=== PATIENT | female | born 2005 | race Caucasian/White ===

== ENCOUNTER → 2023-10-22 | Outpatient (CLI) | payer OTHER, SELFPAY ==
--- NOTE | 2023-10-22 17:15 | RAD_ITS ---
EXAM: XR LUMBOSACRAL SPINE, 4 OR 5 VIEWS CLINICAL INDICATION: Wedge compression fracture of T11-T12 vertebra, sequela TECHNIQUE: Frontal, lateral and bilateral oblique views of the lumbar spine. COMPARISON: Thoracic spine radiographs on the same date. FINDINGS: VERTEBRAE: Multilevel facet arthrosis and endplate osteophytosis. Possible mild T12 compression deformity partially visualized. [place] right curvature of the lumbar spine. No spondylolisthesis. SACRUM/COCCYX: Symmetric appearance of the bilateral SI joints. DISC SPACES: Mild multilevel intervertebral disc height loss. GASTROINTESTINAL TRACT: Normal as visualized. Included bowel gas pattern is non-obstructive. RAD/L/S Spine Min 4 Views IMPRESSION: Possible mild T12 compression deformity partially visualized. Degenerative changes in the lumbar spine. No additional acute osseous abnormality. Electronically Signed: Carlos Corona DO at 20:57 EDT ,
--- NOTE | 2023-10-22 17:15 | RAD_ITS ---
EXAM: XR THORACIC SPINE, 3 VIEWS CLINICAL INDICATION: Wedge compression fracture of T11-T12 vertebra, sequela TECHNIQUE: Frontal, lateral and swimmer''s views of the thoracic spine. COMPARISON: No relevant prior studies available. FINDINGS: VERTEBRAE: Mild superior endplate depression of T12. Preserved vertebral body height. No fracture. No spondylolisthesis. Preservation of the normal thoracic kyphosis. No significant facet arthropathy. DISC SPACES: Unremarkable. Disc spaces are maintained. RAD/Thoracic Spine 3 Views IMPRESSION: Mild superior endplate depression of T12 of uncertain age. No other abnormalities are identified. Electronically Signed: Francisco Marinelli MD at 22:18 EDT ,
== END | disposition home or self-care (01) ==
PROVIDERS: PCP Pediatrics; Referring Provider Anesthesiology; Visit Provider Anesthesiology
DX: S22.080S Wedge compression fracture of T11-T12 vertebra, sequela (principal)
CPT/HCPCS: 72072; 72110

== ENCOUNTER 2023-11-16 17:30 | Outpatient (RCR) | payer OTHER, SELFPAY | END 2023-11-16 19:00 | disposition home or self-care (01) | LOC: PT 17:30 | PROVIDERS: PCP Pediatrics; Referring Provider Anesthesiology; Visit Provider Anesthesiology | DX: M54.6 Pain in thoracic spine (principal); S22.080D Wedge compression fracture of T11-T12 vertebra, subsequent encounter for fracture with routine healing; M79.10 Myalgia, unspecified site | CPT/HCPCS: 97014; 97110; 97161; G0283 ==

== ENCOUNTER 2024-07-20 19:33 | Inpatient (IN) | payer OTHER, SELFPAY ==
[2024-07-20 19:47] VITALS: BMI 29.9
[2024-07-20 20:00] VITALS: BP 110/60; PULSE 82; RESP 16; TEMP 36.6
--- NOTE | 2024-07-20 20:30 | HP.PCM.OB_ITS ---
HPI - General General Date of Admission: 07/20/24 HPI Narrative LYLE MORFIN, is a 19 F at 39.1 weeks gestation who presents for elective induction of labor. Maternal Data Information DWAYNE Calculator Estimated Delivery Date Method Current WG Current Estimate 07/26/24 Manual 39w 1d PFSH [facility] Medical History (Updated 07/20/24 @ 20:32 by Gela Johnson CNM) Asthma Depression Anxiety Fracture of T12 vertebra History of traumatic brain injury History of seizure Home Medications ?Medication ?Instructions ?Recorded ?Last Taken ?Type aspirin 81 mg tablet,delayed 81 mg PO DAILY 07/20/24 07/19/24 20:00 History release 81 mg docosahexaenoic acid 200 mg 200 mg PO DAILY 07/20/24 07/19/24 20:00 History capsule ( DHA) 200 mg ferrous sulfate 325 mg (65 mg 325 mg PO QODAY anemia 0 07/20/24 07/18/24 20:11 History iron) tablet (FeroSul) 325 mg Allergy/AdvReac Type Severity Reaction Status Date / Time No Known Allergies Allergy Verified 07/20/24 20:10 Family History (Updated 10/20/23 @ 15:26 by Shelley Forte) Mother Skin cancer Grandmother Leukemia Grandmother Diabetes Grandmother Breast cancer CVA (cerebral vascular accident) Social History (Updated 10/20/23 @ 15:23 by Shelley Forte) Smoking Status: Never smoker alcohol intake: never History Elective abortions Hx Para 0 Spontaneous abortions Hx # Term Pregnancies Ectopic pregnancies Hx # Pregnancies Multiple births # of living children NST FHR Rate Baby A Baseline: 140 Variability:: Moderate Accelerations:: 15 x 15 Decelerations:: None NST Reactive:: Yes ROS Eyes Eyes: Denies blurry vision, change in vision or spots in vision ENT HEENT: Denies dizziness or headache(s) Cardiovascular Cardiovascular: Denies abdominal pain, chest pain or dyspnea Respiratory/Chest Respiratory/Chest: Denies cough, dyspnea, shortness of breath at rest or shortness of breath with exertion Gastrointestinal Gastrointestinal: Denies abdominal pain, diarrhea or vomiting Genitourinary Genitourinary: Denies change in urinary stream, difficulty urinating or dysuria Musculoskeletal Musculoskeletal: Reports none Integumentary Integumentary: Denies rash Neurologic Neurologic: Denies dizziness, headache(s), memory loss or weakness Psychiatric Psychiatric: Reports none Vital Signs Vital Signs Vital Signs: 07/20/24 20:00 07/20/24 20:00 07/20/24 20:00 Temperature Temperature Source Temporal Pulse Rate 82 Respiratory Rate Blood Pressure 110/60 BP Systolic 110 BP Diastolic 60 07/20/24 20:00 07/20/24 20:00 Temperature 97.8 F Temperature Source Pulse Rate Respiratory Rate 16 Blood Pressure BP Systolic BP Diastolic Weight Weight: 168 lb 13.985 oz Body Mass Index (BMI) 29.9 Physical Exam Const alert, oriented x3 and no apparent distress General Appearance: cooperative Orientation / Consciousness: awake Exam Limitations: no limitations HEENT normocephalic Head and Scalp: normal to inspection Eyes General Eye: normal appearance of both eyes Neck full ROM and no lymphadenopathy Lymph Lymphatic: no lymphadenopathy noted Chest inspection of chest normal Resp normal respiratory effort, normal air movement and clear to auscultation bilaterally Effort and Inspection: able to speak in complete sentences and symmetric chest movement Cardio regular rate and regular rhythm GI normal to inspection, nondistended, normoactive bowel sounds Manual OB Exam: presentation cephalic Back/Spine normal ROM Extremity full ROM and no calf tenderness Skin no rashes or lesions noted General Skin Exam: no breakdown Neuro oriented x3 and CN's II-XII intact bilaterally Psych mental status grossly normal and thought process normal Labs Labs Labs: No Data to Display Assessment & Plan (1) 39 weeks gestation of : (2) Encounter for elective induction of labor: (3) Rubella non-immune status, antepartum: (4) Anemia affecting : PLAN: Plan CE closed Start Cytotec 25 mcg PO every 4 hours x 6 total doses GBS negative Routine labs Pain control as needed Anticipate placement of viera bulb in morning Dr. Guadalupe notified of admission and is collaborating physician
[2024-07-20] MEDS: 0.9% Saline Lock 10 ML Syringe IV (20:41)
[2024-07-20] MEDS: miSOPROStol 25 MCG TABLET PO (20:41)
[2024-07-20 20:48] LABS: Absolute Lymphocyte Count 1.85 X10^3/uL (0.83-4.51); Absolute Neutrophil Count 8.4 X10^3/uL (2.0-7.7); Basophil# 0.02 X10^3/uL; Basophil% 0.2 % (0-1); Eosinophil# 0.07 X10^3/uL; Eosinophils% 0.6 % (0-5); Hematocrit 32.5 % (37-47); Lymphocyte # 1.85 X10^3/ul (0.83-4.51); Lymphocyte % 16.4 % (19-41); Mean Corp Hgb Conc 33.8 g/dL (32-36); Mean Corpuscular Hgb 29.9 pg (27.0-32.0); Mean Corpuscular Volume 88.3 fL (81-99); Mean Platelet Vol. 10.2 fl (6.2-12.0); Monocyte# 0.76 X10^3/uL; Monocyte% 6.7 % (0-10); NRBC Flagged by Analyzer 0 % (0-5); Neutrophil % 74.3 % (47-70); Platelet Count 278 K/mm3 (150-450); RBC Distribution Width CV 13.2 % (11.6-14.6); RBC Distribution Width SD 42.6 fl (35.1-43.9); Red Blood Count 3.68 M/mm3 (4.2-5.4); White Blood Count 11.3 K/mm3 (4.4-11.0)
[2024-07-20] MEDS: Lactated Ringers 1,000 ML 50 ML IV (21:03)
[2024-07-20 21:26] VITALS: PULSE 69; O2SAT 98
[2024-07-20 21:27] LABS: Syphilis Antibodies Nonreactive (Nonreactive)
[2024-07-21] VITALS (53 sets, daily range): BP systolic 86–120; BP diastolic 49–81; PULSE 71–198; RESP 14–16; TEMP 36.2–37.2; O2SAT 96–100
[2024-07-21] MEDS: miSOPROStol 25 MCG TABLET PO ×2 (00:57→05:27)
[2024-07-21] MEDS: 0.9% Normal Saline Single 100 ML IV.SOLN. INTRA-UTER (06:33)
--- NOTE | 2024-07-21 06:33 | PCM.PN.CNM ---
Subjective Subjective Patient seen at bedside. Sleeping sound. Starting to feel mild contractions. Objective Data Objective Data Vital Signs: Vital Signs Temp Pulse Resp BP Pulse Ox 97.4 F L 83 16 106/53 L 98 07/21/24 04:09 07/21/24 04:10 07/21/24 04:09 07/21/24 04:09 07/21/24 04:10 Weight: 168 lb 13.985 oz Body Mass Index (BMI) 29.9 Lab / Micro Data 07/20/24 20:08 Labs: Laboratory Results - last 24 hr 07/20/24 20:08: WBC 11.3 H, RBC 3.68 L, Hgb 11.0 L, Hct 32.5 L, MCV 88.3, MCH 29.9, MCHC 33.8, RDW Std Deviation 42.6, RDW Coeff of Leoncio 13.2, Plt Count 278, MPV 10.2, Immature Gran % (Auto) 1.800 H, Neut % (Auto) 74.3 H, Lymph % (Auto) 16.4 L, [place] % (Auto) 6.7, Eos % (Auto) 0.6, Baso % (Auto) 0.2, Absolute Neuts (auto) 8.4 H, Absolute Lymphs (auto) 1.85, Nucleated RBC % 0, Syphilis Total Ab Nonreactive, Blood Type O POSITIVE, Antibody Screen NEGATIVE Assessment & Plan (1) Anemia affecting : (2) Rubella non-immune status, antepartum: (3) Encounter for elective induction of labor: (4) 39 weeks gestation of : PLAN: Plan CE /-3 Walton bulb placed without difficulty and filled with 30 cc N/S Cytotec 25 mcg PO x 3 doses- last dose 5:30 am Cat. 1 tracing Pain medication as needed
[2024-07-21] MEDS: Lactated Ringers 1,000 ML 999 ML IV (11:15)
[2024-07-21] MEDS: fentaNYL-bupivacaine (epidural) 100 ML BAG EPIDURAL (12:26)
[2024-07-21] MEDS: Lactated Ringers 1,000 ML 200 ML IV (15:40)
[2024-07-21] MEDS: LACTATED RINGERS 500 ML 999 ML IV (15:40)
[2024-07-21] MEDS: Oxytocin 15 Units/NS 250ml 15 UNITS/250 ML IV.SOLN 334 UNITS IV (17:14)
[2024-07-21] MEDS: Oxytocin 15 Units/NS 250ml 15 UNITS/250 ML IV.SOLN 83 UNITS IV (18:20)
[2024-07-21] MEDS: Cefazolin 2 GM in 0.9% Normal Saline (100mL Bag) 100 ML IV (18:37)
[2024-07-21] MEDS: 0.9% Saline Lock 10 ML Syringe IV (20:04)
[2024-07-21] MEDS: Ondansetron 4 MG/2 ML Vial IV (20:04)
--- NOTE | 2024-07-21 20:13 | EX.PCM.OBVAG ---
Assessment & Plan (1) Vacuum extractor delivery, delivered: (2) Single live : (3) Fourth degree perineal laceration: Maternal Data Information DWAYNE Calculator Estimated Delivery Date Method Current WG Current Estimate 07/26/24 Manual 39w 2d Final DWAYNE: 07/26/24 Gestational age: 39 2/7 Vaginal Delivery Maternal Presentation Maternal Presentation: Elective Induction Type of Induction: Cervidil, Walton Bulb and Amniotomy Vaginal Delivery Information Procedure Performed: Vacuum Assisted Vaginal Delivery (outlet) Station at time of placement: +3 Number of vacuum pulls: 2 Number of vacuum pop offs: 0 Surgeon/Practitioner: Cyndee Méndez Date of Procedure: 07/21/24 Pre-Procedure Diagnosis: bradycardia with late decelerations Post-Procedure Diagnosis: same Type of anesthesia: Epidural Special Medications: ancef 2 grams IV Estimated Blood Loss: 800 Time of Delivery: 17:10 Findings Description of procedure: I evaluated the patient and the position was WU and she was labia by 3 cm with maternal pushing. There is minimal caput. She had an epidural in place and it was adequate and a Walton catheter in place. Estimated weight was less than 4000 g clinically and pelvis clinically adequate to expect vaginal delivery. She had bradycardia with moderate variability but some late decelerations and at times minimal variability. The decelerations were coming more prolonged and longer did return to baseline. She had pushed with good progression. I discussed with the patient that I recommend expediting delivery with vacuum assistance. Patient and her agreed. Vacuum was placed on the flexion point after the team was assembled. Suction was created 550 mmHg. I pulled with 2 contractions and no pop offs to . The vacuum was removed and the head was delivered with maternal pushing efforts. A vigorous female infant was delivered WU over a 4 degree perineal laceration. A loose nuchal cord ?1 was easily reduced. The remainder the infant was delivered with maternal pushing and gentle traction only in less than 15 seconds. The Pitocin infusion was initiated for active management of the third stage. The cord was clamped and cut after 1 minute. The infant was attended to by the waiting nursing staff. The placenta was delivered spontaneously and intact. The cervix and vagina were intact. I repaired the laceration and after repairing the sphincter I did a rectal exam and no defects were appreciated. However after I finish the entire repair I did another rectal exam and appreciated approximately a 8 mm defect in the rectal mucosa. I discussed with the patient and her this finding and recommended repair in the operating room. She was taken the operating room for better visualization and so I could have assistance with retraction. The repair was taken down and the rectal mucosa was repaired with 3-0 Monocryl in a running standard fashion. The fascia of the anal sphincter was grasped with Allis clamps and reapproximated with 0 Vicryl suture. This was done in an overlapping fashion. Excellent reapproximation was noted. Then used a 2-0 Vicryl suture to reapproximate the vaginal epithelium in the perineal body in a running standard fashion. Some 3-0 Vicryl suture was used to reapproximate the perineal skin. A rectal exam was done at the end of the procedure and excellent repair was noted and there were no defects. Dr. Guadalupe assisted me with the second repair. She provided traction and suturing and assistance with visualization. Sponge and needle counts were correct. A vaginal sweep was completed by me. 1 moist sponge was then placed in the vagina for packing as there was some oozing through the sutures. Brandan was placed under the packing. Presentation: WU Amniotic Membrane Rupture Type: Artificial Amniotic Fluid Description: Moderate meconium Placental Delivery Description: Spontaneous Placenta Disposition: [facility] Specimen collected: No Cord Vessel Description: 3 Vessels Cord Entanglement: Around neck x 1, loose Nuchal Cord Compression: Without compression Cord Gases: ABG and VBG Infant A Gender: Female (1 minute): 8 (5 minute): 9 Delayed Cord Clamping: Yes Calendering Supervisor medical data analyst: Yes Pipe Line Walker: Meaghan Paz Tasks completed by surgical assistant certified: Hemostasis: Clamp, Hemostasis: Tie and Retracting Additional assistant professor of anthropology?: No Post Vaginal Deli Medications given after delivery: IV Pitocin Episiotomy Description: None Laceration: 4th Degree Complication Complications: No
[2024-07-21] MEDS: Ibuprofen 600 MG Tablet PO (22:30)
[2024-07-21] MEDS: Docusate Sodium 100 MG Capsule PO (22:31)
[2024-07-21] MEDS: Benzocaine/Lanolin/Aloe Vera 85 GM Spray 1 SPRAY TOPICAL (22:31)
[2024-07-21] MEDS: Acetaminophen 500 MG Tablet 1000 MG PO (23:29)
[2024-07-22] VITALS (8 sets, daily range): BP systolic 100–115; BP diastolic 57–62; PULSE 89–106; RESP 16; TEMP 36–37.1; O2SAT 96–99
[2024-07-22] MEDS: Ibuprofen 600 MG Tablet PO ×3 (06:02→17:55)
[2024-07-22 06:27] LABS: Absolute Neutrophil Count 11.4 X10^3/uL (2.0-7.7); Basophil# 0.03 X10^3/uL; Basophil% 0.2 % (0-1); Eosinophil# 0.03 X10^3/uL; Eosinophils% 0.2 % (0-5); Hematocrit 27.1 % (37-47); Hemoglobin 9.1 g/dL (12.0-15.0); Lymphocyte % 10.8 % (19-41); Mean Corp Hgb Conc 33.6 g/dL (32-36); Mean Corpuscular Hgb 29.8 pg (27.0-32.0); Mean Corpuscular Volume 88.9 fL (81-99); Mean Platelet Vol. 10.2 fl (6.2-12.0); Monocyte# 0.87 X10^3/uL; Monocyte% 6.3 % (0-10); NRBC Flagged by Analyzer 0 % (0-5); Neutrophil # 11.38 X10^3/uL (2.7-7.7); Neutrophil % 81.7 % (47-70); Platelet Count 223 K/mm3 (150-450); RBC Distribution Width CV 13.3 % (11.6-14.6); RBC Distribution Width SD 43.3 fl (35.1-43.9); Red Blood Count 3.05 M/mm3 (4.2-5.4); White Blood Count 13.9 K/mm3 (4.4-11.0)
[2024-07-22] MEDS: Acetaminophen 500 MG Tablet 1000 MG PO ×3 (08:47→20:44)
[2024-07-22] MEDS: oxyCODONE 5 MG Tablet PO ×3 (08:48→20:42)
--- NOTE | 2024-07-22 09:33 | PCM.PN.BLA ---
Progress Note Pain in her perineum. Took oxy. Average lochia. Tired. Physical Exam Narrative one intact laparatomy tape removed. Some moderate edema of labia and perineum. No hematomas noted. Viera in place Const alert and no apparent distress Narrative: Fundus firm, below umbilicus. Assessment & Plan Assessment/Plan (1) Fourth degree perineal laceration: PLAN: vag pack out ok to remove viera d/w her wound care f/u in office next week and will refer to perineal wound clinic as well work on recheck cbc in am likely d/c home tomorrow (2) Vacuum extractor delivery, delivered:
--- NOTE | 2024-07-22 09:40 | NURSING ---
Lap sponge removed from vagina per Dr. Méndez.
[2024-07-22] MEDS: Docusate Sodium 100 MG Capsule PO ×2 (10:24→22:08)
--- NOTE | 2024-07-22 14:00 | NURSING ---
Sitz bath done, pt tolerated well.
[2024-07-22] MEDS: MEASLES,MUMPS,RUBELLA VACC/PF 0.5 ML SC (20:46)
[2024-07-23] MEDS: Ibuprofen 600 MG Tablet PO ×2 (00:05→06:11)
[2024-07-23] MEDS: Acetaminophen 500 MG Tablet 1000 MG PO ×2 (02:47→10:44)
[2024-07-23] MEDS: oxyCODONE 5 MG Tablet PO (02:48)
[2024-07-23 02:50] VITALS: BP 104/55; PULSE 80; RESP 16; TEMP 36.4; O2SAT 96
[2024-07-23 02:51] VITALS: BP 103/51; BP 104/55; PULSE 83; PULSE 85; O2SAT 96
[2024-07-23 06:18] LABS: Absolute Lymphocyte Count 1.34 X10^3/uL (0.83-4.51); Absolute Neutrophil Count 6.2 X10^3/uL (2.0-7.7); Basophil# 0.03 X10^3/uL; Basophil% 0.4 % (0-1); Eosinophil# 0.13 X10^3/uL; Eosinophils% 1.5 % (0-5); Hemoglobin 7.4 g/dL (12.0-15.0); Lymphocyte # 1.34 X10^3/ul (0.83-4.51); Lymphocyte % 15.9 % (19-41); Mean Corp Hgb Conc 33.6 g/dL (32-36); Mean Corpuscular Hgb 30.3 pg (27.0-32.0); Mean Corpuscular Volume 90.2 fL (81-99); Mean Platelet Vol. 10.4 fl (6.2-12.0); Monocyte% 7.1 % (0-10); NRBC Flagged by Analyzer 0 % (0-5); Neutrophil % 73.4 % (47-70); Platelet Count 185 K/mm3 (150-450); RBC Distribution Width CV 13.7 % (11.6-14.6); Red Blood Count 2.44 M/mm3 (4.2-5.4); White Blood Count 8.4 K/mm3 (4.4-11.0)
[2024-07-23 08:08] VITALS: BP 104/62; PULSE 92; O2SAT 98
[2024-07-23 08:11] VITALS: BP 104/62; PULSE 83; RESP 16; TEMP 36.7; O2SAT 98
[2024-07-23] MEDS: Iron Sucrose Complex 200 MG in 0.9% Normal Saline (100mL Bag) 100 ML 220 MG IV (10:43)
[2024-07-23] MEDS: Docusate Sodium 100 MG Capsule PO (10:44)
--- NOTE | 2024-07-23 11:02 | PCM.PN.OB ---
Subjective Subjective Doing well per patient and nursing staff. Ambulating and taking PO without difficulty. Voiding and passing flatus. Pain controlled. , services for assistance. Denies headache, visual changes, chest pain, shortness of breath, leg pain or increased bleeding. Lochia normal. Objective Data Objective Data Vital Signs: Vital Signs Temp Pulse Resp BP Pulse Ox O2 Del Method 98.0 F 83 16 104/62 98 Room Air 07/23/24 08:11 07/23/24 08:11 07/23/24 08:11 07/23/24 08:11 07/23/24 08:11 07/23/24 08:11 Oxygen Delivery Method Room Air Weight: 168 lb 13.985 oz Body Mass Index (BMI) 29.9 Intake & Output: Intake and Output for Last 24 Hours 07/21/24 07/22/24 07/23/24 23:59 23:59 23:59 Intake Total 3410.00 / 3410.00 Output Total 2800 / 2800 1570 / 1570 Balance 610.00 / 610.00 -1570 / -1570 Lab / Micro Data 07/23/24 06:10 Labs: Laboratory Results - last 24 hr 07/23/24 06:10: WBC 8.4, RBC 2.44 L, Hgb 7.4 L, Hct 22.0 L, MCV 90.2, MCH 30.3, MCHC 33.6, RDW Std Deviation 45.0 H, RDW Coeff of Leoncio 13.7, Plt Count 185, MPV 10.4, Immature Gran % (Auto) 1.700 H, Neut % (Auto) 73.4 H, Lymph % (Auto) 15.9 L, [place] % (Auto) 7.1, Eos % (Auto) 1.5, Baso % (Auto) 0.4, Absolute Neuts (auto) 6.2, Absolute Lymphs (auto) 1.34, Nucleated RBC % 0 ROS Constitutional Constitutional: Reports systems reviewed and no addt'l complaints, except as documented; Denies headache(s) Eyes Eyes: Denies acute decrease in peripheral vision, blurry vision or change in vision ENT HEENT: Reports systems reviewed and no addt'l complaints, except as documented Cardiovascular Cardiovascular: Denies chest pain or dizziness Respiratory/Chest Respiratory/Chest: Denies cough, dyspnea, dyspnea on exertion, shortness of breath at rest or shortness of breath with exertion Gastrointestinal Gastrointestinal: Denies abdominal pain, diarrhea, nausea or vomiting Genitourinary Genitourinary: Denies abdominal discomfort Musculoskeletal Musculoskeletal: Denies limited range of motion Integumentary Integumentary: Reports systems reviewed and no addt'l complaints, except as documented Neurologic Neurologic: Reports systems reviewed and no addt'l complaints, except as documented Psychiatric Psychiatric: Reports systems reviewed and no addt'l complaints, except as documented Endocrine Endocrinology: Reports systems reviewed and no addt'l complaints, except as documented Hematologic/Lymphatic Hematologic/Lymphatic: Reports systems reviewed and no addt'l complaints, except as documented Allergic/Immunologic Allergic/Immunologic: Reports systems reviewed and no addt'l complaints, except as documented Physical Exam Const alert and oriented x3 General Appearance: cooperative Orientation / Consciousness: awake, oriented to person, oriented to place and oriented to time Exam Limitations: no limitations HEENT normocephalic Head and Scalp: normal to inspection, normocephalic and atraumatic Face and Sinus: normal facial exam Eyes General Eye: normal appearance of both eyes Neck full ROM Chest Chest: symmetrical chest wall rise Resp normal respiratory effort and normal air movement Auscultation: clear to auscultation bilaterally Cardio regular rate, regular rhythm, S1 normal heart sound, S2 normal heart sound, no murmurs, no rub, no gallops and no clicks GI normal to inspection, nondistended, normoactive bowel sounds and non-tender appearance of the vagina normal Bladder / Kidney Exam: no CVA tenderness Back/Spine normal ROM Extremity normal to inspection and full ROM Skin no rashes or lesions noted Neuro oriented x3, CN's II-XII intact bilaterally and moves all extremities Sensorium / Orientation: awake, alert and oriented to person Motor Exam: clonus absent Deep Tendon Reflexes: Rt Patellar (L4): 2+ and Lt Patellar (L4): 2+ Assessment & Plan (1) Single live : (2) Fourth degree perineal laceration: (3) Vacuum extractor delivery, delivered: (4) Anemia affecting : PLAN: Plan 1) Routine care, PPD #2 2) Vitals signs stable 3) Pain controlled 4) , services PRN 5) D/C home 6) Follow up in 2 weeks and 6 weeks
--- NOTE | 2024-07-23 11:05 | DS.PCM_ITS ---
Providers Date of Admission: 07/20/24 Primary Care Physician: No Primary Care Phys Reason For Visit: VAGINAL DELIVERY Diagnosis Discharge Diagnosis (1) Single live : Status: Acute Code(s): Z37.0 - Single live (2) Fourth degree perineal laceration: Status: Acute Code(s): O70.3 - Fourth degree perineal laceration during delivery (3) Vacuum extractor delivery, delivered: Status: Acute Code(s): O75.9 - Complication of labor and delivery, unspecified (4) Anemia affecting : Status: Acute Code(s): O99.019 - Anemia complicating , unspecified trimester Plan 1) Routine care, PPD #2 2) Vitals signs stable 3) Pain controlled 4) , services PRN 5) D/C home 6) Follow up in 2 weeks and 6 weeks Medications at Discharge Home Medications docosahexaenoic acid 200 mg capsule ( DHA) 200 mg PO DAILY 07/20/24 ferrous sulfate 325 mg (65 mg iron) tablet (FeroSul) 325 mg PO QODAY anemia 07/20/24 acetaminophen 500 mg tablet 1,000 mg (2 x 500 mg) PO Q6H PRN PRN Pain 1-10 Or Fever #0 tabs 07/23/24 docusate sodium 100 mg capsule 100 mg PO BID #60 caps 07/23/24 ibuprofen 600 mg tablet 600 mg PO Q6H PRN PRN Pain Score 1-10 #0 tabs 07/23/24 oxycodone 5 mg tablet 5 mg PO Q6H 7 days #7 tabs 07/23/24 Hospital Course Operations section Summary of Care Provided Minutes Spent on Discharge: 15 Weight / BMI Weight Weight: 168 lb 13.985 oz Body Mass Index (BMI) 29.9 ABG / Lab / Microbiology Data 07/23/24 06:10 Laboratory: Laboratory Results - last 24 hr 07/23/24 06:10: WBC 8.4, RBC 2.44 L, Hgb 7.4 L, Hct 22.0 L, MCV 90.2, MCH 30.3, MCHC 33.6, RDW Std Deviation 45.0 H, RDW Coeff of Leoncio 13.7, Plt Count 185, MPV 10.4, Immature Gran % (Auto) 1.700 H, Neut % (Auto) 73.4 H, Lymph % (Auto) 15.9 L, [place] % (Auto) 7.1, Eos % (Auto) 1.5, Baso % (Auto) 0.4, Absolute Neuts (auto) 6.2, Absolute Lymphs (auto) 1.34, Nucleated RBC % 0 D/C Instructions Discharge Diet: No restrictions Discharge Activity: Return to Normal Activity, May Drive, May Shower and May Take a Tub Bath May resume sexual activity in: 6 weeks Weight Bearing Status: Full weight bearing Call your doctor if you observe: Fever of 101 or Higher, Inability to urinate, Using more than 1 pad per hour, Shortness of breath, Chest pain, Increased palpitations (irregular heartbeat), Calf discomfort and Uncontrolled pain DC O2, CPAP, BIPAP Needs Home O2 Discharge instructions: No Please Follow Up With: Dora Naik CNM When: 2 week virtual visit and 6 week visit. Please call office to get appointment with clinic due to 4th degree laceration. Meaningful Use Info Meaningful Use Meaningful Use Diagnoses (Choose all that apply): None applicable Ischemic Stroke Statin Dosing Therapy Reference: STATIN DOSE THERAPY REFERENCE: * Patients > 75 years receive moderate or high dose statin therapy. * Patients 75 years or YOUNGER should receive HIGH intensity statin dose unless contraindicated. You will be required to document reason for non-treatment if statin daily dose does not meet guidelines. HIGH DOSE STATIN THERAPY DAILY Atorvastatin > than or = to 40 mg Rosuvastatin > than or = to 20 mg Amlodipine + Atorvastatin > than or = to 2.5/40 mg Ezetimibe + Simvastatin 10/80 mg Simvastatin 80mg Discharge Plan Admission Admit Date/Time: 07/20/24 19:33 Primary Reason for Your Visit: Vaginal Delivery, Vacuum Assisted, 4th degree perineal laceration Attending Provider: Cyndee Méndez Primary Care Provider: Care Physician,Sarai Primary Discharge Orders/Prescriptions Prescriptions: New acetaminophen 500 mg Tablet 1,000 mg PO Q6H PRN PRN (Reason: Pain 1-10 Or Fever) Qty: 0 0RF docusate sodium 100 mg Capsule 100 mg PO BID Qty: 60 0RF ibuprofen 600 mg Tablet 600 mg PO Q6H PRN PRN (Reason: Pain Score 1-10) Qty: 0 0RF oxycodone 5 mg Tablet 5 mg PO Q6H 7 Days Qty: 7 0RF Continued ferrous sulfate [FeroSul] 325 mg (65 mg iron) tablet 325 mg PO QODAY DHA 200 mg capsule 200 mg PO DAILY Discontinued aspirin 81 mg tablet,delayed release (DR/EC) 81 mg PO DAILY Referrals / Follow Up: Care Physician,No Primary [Primary Care Provider] - Disposition Disposition (needs filled in before D/C Order can be placed): Home, Self Care
[2024-07-23] MEDS: 0.9% Saline Lock 10 ML Syringe IV (11:25)
--- NOTE | 2024-07-23 11:34 | CASEMGMT ---
Social Work Assessment Labor and Delivery Unit Patient Address: [address] [place] [address]. [address]. [place] [address] Phone number: [phone] Date of Referral: 07/22/2024 Time of Referral:?146 Referred By: Cyndee Méndez MD Date of Intervention: 07/23/2024 Time of Intervention:?944 Reason for Referral:? mental health, anxiety History obtained from: medical records, mother of baby (MOB) Household composition: MOB reports that currently residing in the home is self, father of baby (FOB), and baby to be added to home when ready for discharge. MOB states that housing is safe and secure. Patient's parent/guardian status:?MOB reports that FOB is , Breezy Randhawa. MOB reports being friends with FOB and FOB's family since a young age and being for 3.5 years. FOB reports turning 20 in August and currently working an apprenticeship at [employer]. Medical History: ?FRANCESCA is a 19 year old female who is 1, para 0 - now 1 following labor and delivery of . MOB received routine care during with [facility]. FRANCESCA presented to [facility] for elective induction of labor at 39 weeks gestation on 07/20/2024. baby girl, Shlomo Spence, was born weighing 8lbs, 5oz with apgars of 8 and 9 at one and five minutes of life respectively. FRANCESCA is breast feeding exclusively, but intends to switch to bottles in one month. Baby will be followed by Dr. Rosario for pediatrics. Educational Status:? MOB states completing high school. 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 MOB is able to take 12 weeks off for maternity leave. Supplies: MOB reports obtaining all necessary baby supplies, including car seat, safe sleep space, clothes diapers, and wipes. MOB reports having time and ability to obtain the necessary bottles and nipples to feed baby when switching to bottle feeding. Childcare/Caregiver(s):?MOB states that maternal grandmother, FOB's sister, and FOB's friends are largest supporters for MOB and FOB. MOB and FOB will likely work opposite shifts by the end of MOB's maternity leave which will allow for MOB/FOB to be baby's largest caregivers. Transportation:?MOB and FOB both have valid assembly line driver's license and reliable vehicles. FRANCESCA's vehicle (2022 [employer]) will be the main transportation. Programs/Agencies Involved: MOB denies being connected to any programs or agencies at this time. MOB accepted information on [facility], but declined referral at this time. Children Services/Legal Issues:?MOB and FOB denied any CPS or other legal issues at this time. Behavioral Health Issues: ??Mental Health History:?MOB states being forced to go to counseling when younger due to MOB's parents getting a divorce. MOB reports returning to counseling and being diagnosed with anxiety in 2019 due to a crazy ex boyfriend. MOB states starting an anti-depressant (MOB cannot recall which one) at that time, though states stopping that medication when ending the relationship due to feeling better. MOB states feeling the anxiety was situational as MOB has felt fine off of the medication. FOB reportedly was also in counseling and anger management when younger due to FORodney's parents getting a divorce. FOB states not needing to return to counseling at all since then and FOB feels as if FORodney has a much better grasp on anger now; MOB agreed. MOB stated the only anxiety felt in the hospital since has been when baby was not feeding well. MOB states this was resolved after was able to help teach MOB different feeding techniques. Substance Use History:?MOB and FOB both decline substance use history. Family History:?MOB and FOB both denied any family history of mental illness or substance abuse. Drug Screens: MOB and baby did not receive toxicology screens during admission. Family/Social Stressors:?MOB does not specifically identify concerns or stressors at this time. MOB stated knowing self well enough that MOB will need to be out of the home rather than cooped up for 12 weeks. Support Systems: MOB states that maternal grandmother, FOB's sister, and FOB's friends are largest supporters for MOB and FOB. Depression/Shaken Baby/Safe Sleeping: SW educated MOB and FOB on signs and symptoms of baby blues and mood and anxiety disorders to be mindful of during this period. MOB states knowing MOB is more susceptible to anxiety due to previous diagnosis of anxiety and MOB states FOB to be a good support system. SW educated MOB and FOB on shaken baby prevention and ABCs of safe sleep. MOB and FOB expressed understanding. ASSESSMENT:?MOB and baby admitted following labor and delivery. MOB has mental health history (anxiety), but declines feeling anxious . This is MOB's first child and MOB is currently residing with FOB. MOB denies any legal history, agency involvement, or open CPS cases. MOB states previous anxiety was situational due to ex-boyfriend and denies being on any medication for this at this time. MOB and FOB both deny substance use, historical or current. MOB and FOB were both talkative and open with SW during completion of assessment. Both were receptive to resources provided and discussed. MOB was observed feeding baby upon SW arrival and observed caring for baby and bracing head/neck appropriately. FOB reentered room after getting something to eat and was observed sitting on couch, engaging in conversation when appropriate. Safe Plan of Care for related to substance use:? N/A PLAN:?? No other services requested or indicated. MOB and baby to be discharged when medically ready. Parents were provided literature regarding: signs and symptoms of baby blues and mood and anxiety disorders, [facility], shaken baby prevention, ABCs of safe sleep and a list of county resources that are available for them should any needs present themselves. Jesenia Jeong, PAPER COUNTER, REAL ESTATE CLERK
== END 2024-07-23 13:00 | disposition home or self-care (01) | DRG 768 ==
PROVIDERS: Admitting Provider Advanced Practice Midwife; Visit Provider Obstetrics & Gynecology
DX: O99.02 Anemia complicating childbirth (principal); Z37.0 Single live birth; O70.3 Fourth degree perineal laceration during delivery; O69.81X0 Labor and delivery complicated by cord around neck, without compression, not applicable or unspecified; O76 Abnormality in fetal heart rate and rhythm complicating labor and delivery; O77.0 Labor and delivery complicated by meconium in amniotic fluid; Z3A.39 39 weeks gestation of pregnancy; Z23 Encounter for immunization
CPT/HCPCS: 59025; 59050; 85025; 86780; 86850; 86900; 86901; 99221; J1756; A4216; G0378; J2405

== ENCOUNTER 2024-07-25 20:21 | Emergency (ER) | payer OTHER, SELFPAY ==
[2024-07-25 20:21] VITALS: BP 120/73; PULSE 90; RESP 18; TEMP 37.2; O2SAT 98; BMI 28.1
--- NOTE | 2024-07-25 21:04 | ED.RN ---
PT STATES SHE HAD BOWEL MOVEMENT AND I FEEL BETTER NOW PT STATES SHE DOES NOT WISH TO SEE THE DOCTOR ANYMORE.
== END 2024-07-25 21:09 | disposition left against medical advice (07) ==
LOC: ED 21:07
DX: Z53.21 Procedure and treatment not carried out due to patient leaving prior to being seen by health care provider (principal)